=== PATIENT | female | born 1980 | race Caucasian/White ===

== ENCOUNTER 2018-03-25 13:40 | Emergency (ER) | payer MEDICAID ==
[~2018-03-25] VITALS: Ht 160 cm; Wt 79.0 kg
[~2018-03-25 13:40] MED LIST: CEFD300C37 PO; GABA100C PO; HYDR20TA22 PO
--- NOTE | 2018-03-25 14:14 | NUR ---
[employer]: SAM SENT TO LAB
--- NOTE | 2018-03-25 14:21 | NUR ---
Pt to room from lobby.
[2018-03-25 14:34] LABS: BASOPHILS # (AUTO) 0.03 x10^3/uL (0-0.1); BASOPHILS % (AUTO) 0 % (0-1); EOSINOPHILS # (AUTO) 0.43 x10^3/uL (0-0.4); EOSINOPHILS % (AUTO) 4 % (1-7); LYMPHOCYTES # (AUTO) 1.87 x10^3/uL (1-3.4); LYMPHOCYTES % (AUTO) 19 % (22-44); MD NO; MEAN CORPUSCULAR HGB CONC 34.2 g/dL (32.4-35.8); MEAN CORPUSCULAR VOLUME 90.6 fL (80-100); MEAN PLATELET VOLUME 7.9 fL (7.4-10.4); MONOCYTES # (AUTO) 0.84 x10^3/uL (0.2-0.8); MONOCYTES % (AUTO) 9 % (2-9); NEUTROPHILS # (AUTO) 6.51 x10^3/uL (1.8-6.8); NEUTROPHILS % (AUTO) 67 % (42-75); PLATELET COUNT 380 x10^3/uL (130-400); RED BLOOD COUNT 4.74 x10^6/uL (3.82-5.3); RED CELL DISTRIBUTION WIDTH 13.4 % (9.6-15.2)
[2018-03-25 14:34] LABS: CULTURE INDICATED? YES; MICROSCOPIC INDICATED
[2018-03-25 14:40] LABS: ALBUMIN 3.9 g/dL (3.4-5.0); ANION GAP 6 mmol/L (5-15); CALCIUM 9.1 mg/dL (8.5-10.1); CHLORIDE 107 mmol/L (98-107)
[2018-03-25 14:41] LABS: CREATININE 1.25 mg/dL (0.55-1.02)
[2018-03-25] MEDS ORDERED: DIAZEPAM 5 MG TABLET ONE (14:46)
[2018-03-25 14:50] VITALS: BP 121/76
[2018-03-25] MEDS ORDERED: DIAZEPAM 5 MG TABLET PO ONE (15:00)
== END 2018-03-25 15:40 | disposition home or self-care (01) ==
LOC: ED 15:16
DX: N30.20 Other chronic cystitis without hematuria (principal)
CPT/HCPCS: 36415; 80048; 81001; 82040; 85025; 87086; 99283